=== PATIENT | female | born 1950 | race Caucasian/White ===

== ENCOUNTER 2025-11-14 09:59 | Day surgery (SDC) | payer BC ==
[2025-11-14] VITALS (8 sets, daily range): BP systolic 136–164; BP diastolic 65–87; PULSE 64–80; RESP 16–18; TEMP 98.3; O2SAT 94–98
[~2025-11-14] VITALS: Ht 154.9 cm; Wt 91.6 kg
[~2025-11-14 09:59] MED LIST: LIRA0.6P3 SQ; SITA100T11 PO; simethicone 40mg/0.6ml oral drops 15ml ONE
[2025-11-14] MEDS: ringers solution, lacted 1,000 ML IV SCH (11:16)
[2025-11-14] MEDS ORDERED: midazolam 1 mg/ML 2ml injection ONE (13:31)
[2025-11-14] MEDS ORDERED: propofol inj 20 ML IV ONE (14:04)
== END 2025-11-14 15:20 | disposition home or self-care (01) ==
LOC: PAS 09:59
PROVIDERS: ATTEND Internal Medicine Gastroenterology
DX: Z12.11 Encounter for screening for malignant neoplasm of colon (principal); K57.30 Diverticulosis of large intestine without perforation or abscess without bleeding; E11.40 Type 2 diabetes mellitus with diabetic neuropathy, unspecified; E66.3 Overweight; E78.5 Hyperlipidemia, unspecified; I12.9 Hypertensive chronic kidney disease with stage 1 through stage 4 chronic kidney disease, or unspecified chronic kidney disease; E11.22 Type 2 diabetes mellitus with diabetic chronic kidney disease; N18.30 Chronic kidney disease, stage 3 unspecified; Z90.710 Acquired absence of both cervix and uterus; Z90.49 Acquired absence of other specified parts of digestive tract; Z86.73 Personal history of transient ischemic attack (TIA), and cerebral infarction without residual deficits; Z68.37 Body mass index [BMI] 37.0-37.9, adult
CPT/HCPCS: 45378; J2250; J2704; J7120; Z7512; A4615